=== PATIENT | female | born 1990 | race Caucasian/White ===

== ENCOUNTER 2020-01-06 09:07 | Emergency (ER) | payer MEDICAID, OTHER ==
[~2020-01-06 09:07] MED LIST: ESCI20TA PO
== END 2020-01-06 10:03 | disposition left against medical advice (07) ==
LOC: ER 09:07
DX: R35.0 Frequency of micturition (principal); Z53.21 Procedure and treatment not carried out due to patient leaving prior to being seen by health care provider